=== PATIENT | female | born 1950 | race Caucasian/White ===

== ENCOUNTER → 2023-10-28 09:40 | Outpatient (REF) | payer MEDICARE, OTHER, SELFPAY | LOC: HWRAD 09:40 | PROVIDERS: ATTENDING PHYSICIAN Internal Medicine Critical Care Medicine; FAMILY PHYSICIAN Family Medicine | DX: Z87.891 Personal history of nicotine dependence (principal) | CPT/HCPCS: 71271 ==

== ENCOUNTER 2023-11-17 14:12 | Emergency (ER) | payer MEDICARE, OTHER, SELFPAY ==
[2023-11-17 14:24] VITALS: BP 179/86
[2023-11-17 18:01] LABS: % Basophils 0.9 % (0-2); % Eosinophils 1.7 % (0-6); % Immature Granulocytes 0.3 % (0-0.5); % Lymphocytes 7.9 % (20.5-51.1); % Monocytes 4.7 % (1.7-9.3); % Neutrophils 84.5 % (42.2-75.2); Absolute Basophils 0.1 10^3/uL (0-0.2); Absolute Eosinophils 0.2 10^3/uL (0-0.7); Absolute Lymphocytes 0.7 10^3/uL (1.2-3.4); Absolute Monocytes 0.4 10^3/uL (0.1-0.6); Absolute Neutrophils 7.4 10^3/uL (1.4-6.5); Hematocrit 41.2 % (37.0-47.0); Hemoglobin 14.4 g/dL (12.0-16.0); Mean Corpuscular Hgb 32.5 pg (27.0-31.0); Mean Platelet Volume 8.9 fL (7.4-10.4); Nucleated Red Blood Cells % 0 %; Platelet Count 265 10^3/uL (130-400); Red Blood Cell Count 4.43 10^6/uL (4.20-5.40); Red Cell Dist. Width 13.7 % (11.5-14.5); White Blood Cell Count 8.8 10^3/uL (4.8-10.8)
[2023-11-17] MEDS: TYLENOL 650 MG PO (18:12)
[2023-11-17 18:15] LABS: ALT (SGPT) 20 U/L (0-35); AST (SGOT) 29 U/L (14-36); Alkaline Phosphatase 83 U/L (38-126); Blood Urea Nitrogen 16 mg/dl (7-17); Calcium 9.5 mg/dl (8.4-10.2); Carbon Dioxide 26 mmol/L (22-30); Chloride 102 mmol/L (98-107); Glucose 91 mg/dl (70-99); Potassium 4.3 mmol/L (3.5-5.1); Sodium 136 mmol/L (135-145); Total Bilirubin 0.5 mg/dl (0.2-1.3); Total Protein 7.2 g/dl (6.3-8.2); eGFR > 60.00
[2023-11-17 18:26] VITALS: BMI 23.0
--- NOTE | 2023-11-17 18:29 | ED.GENMED ---
History of Present Illness
<Nancy Trammell PA-C - Last Filed: 11/20/23 15:20>
General
Chief Complaint: Chest Pain
Source: patient
Exam Limitations: none
Time Seen by Provider: 11/17/23 17:18
Nursing documentation reviewed up to this point in time: agreed with
Travel History
Have you had any contact with someone who has COVID-19?: No
Do you have any symptoms of coronavirus? Fever > 100 degrees, chills, cough, shortness of breath, sore throat, loss of taste or smell, muscle aches, or headache?: Yes
Symptoms:: fever
History of Present Illness
History of Present Illness:
pt is a 73 y/o F with h/o HTN, hld, microscopic colitis
osteoporosis
had first infusion of reclast yesterdayat 4 pm
she was told to expect fever, flu like symptoms
pt says around 7 pm she started having some pain under her bra, which felt tight like a mildly uncomfortable band
pt says it was minimal and she was able tosleep
she woke up and still had that feeling, like a tightness/discomfrt under her bra area on both sides
it is not better or worse with breathing
she called the office to ask if chest pain was a side effect and seh was told no and to come in
pt has a fefver now and feels feverish, headache, chills, slight cough
she has chronic diarrhea, has had diagnosis of microscopic colitis and is followed by GI
she has loose stool after each po intake for years;
sometimes she takes immodium
no bloody stool and no significant diarrhea today
denies drinking alcohol
no recent travel, no surgeries, no horomones, no pe rf.
Past History
<Nancy Trammell PA-C - Last Filed: 11/20/23 15:20>
Past History
ED Past Medical History: HTN, Hypercholesterolemia, Hypothyroidism and Other (Microscopic colitis, Diverticulosis)
ED Past Surgical History: None
Social History
Tobacco: Smoker
Alcohol: None
Personal:
Living: alone
Review of Systems
<GLENDA Naidu Last Filed: 11/20/23 15:20>
Review of Systems
Allergies reviewed?: Yes
All Other Systems: Not applicable
Phy Exam
<GLENDA Naidu Last Filed: 11/20/23 15:20>
Physical Exam
Physical Exam:
GENERAL: Alert , flushed, slight chills
EYE: pupils equal and reactive
NECK: Supple
ENT: b/l TM s clear, pharynx erythematous but no tonsillar hypertrophy or exudates
CARDIAC: Regular rate and rhythm, no edema
LUNGS: Clear breath sounds bilaterally, no acute respiratory distress, no wheezes/rales/rhonchi, occ cough
ribs nontender
deep breaths normally
ABDOMEN: Soft, without focal tenderness, no r/g, no cvat, normal bowel sounds
neg silva's sign
NEUROLOGICAL: Alert and oriented, no focal neuro deficits
SKIN: Warm and dry, skin intact.
MUSCULOSKELETAL: No edema, well perfused.
PSYCH: Normal and appropriate interaction.
Scores
<Nancy Trammell PA-C - Last Filed: 11/20/23 15:20>
Heart Score for Chest Pain Patients
STEMI patient?: No
History: Slightly or Non-Suspicious
ECG: Normal
Age: >/= 65 years
Risk Factors: 1 or 2 Risk Factors
Troponin: </= Normal Limit
Heart Score for Chest Pain Patients: 3
Heart Score Risk: 2.5% MACE over next 6 weeks
Course
<Nancy Trammell PA-C - Last Filed: 11/20/23 15:20>
Orders/Labs/Results
Orders:
Orders
11/17/23 14:27
Electrocardiogram (*1) Urgent
Reason for Study: Chest Pain
EKG- Treatment ONCE
11/17/23 17:45
COVID-19 Antigen Urgent
Source: Nasal Swab
Complete Blood Count/With Diff Urgent
Comprehensive Metabolic Panel Urgent
Lipase Urgent
Comment: ADD ON
Troponin I Urgent
Influenza A+B Rapid Molecular Urgent
SUHAS Source: Nasal Swab
Specimen Description:
11/17/23 17:52
Acetaminophen [Tylenol] 650 mg .ROUTE .STK-MED ONE
11/17/23 18:12
Acetaminophen [Tylenol] 650 mg PO NOW STA
11/17/23 18:19
Add On- LAB Urgent
Tests Added?: lipase
11/17/23 18:27
CR Chest - 2 Views Urgent
Comment:
Reason For Exam: chest pain
11/17/23 18:41
0.9% Sodium Chloride 1000 ml [Nss] 1,000 ml IV BOLUS
Abnormal Lab Results
11/17/23
17:45
MCH 32.5 H pg
(27.0-31.0)
Absolute Neuts (auto) 7.4 H 10^3/uL
(1.4-6.5)
Absolute Lymphs (auto) 0.7 L 10^3/uL
(1.2-3.4)
Neutrophils % 84.5 H %
(42.2-75.2)
Lymphocytes % 7.9 L %
(20.5-51.1)
11/17/23 17:45
11/17/23 17:45
Vital Signs
Initial and Last Documented VS:
Initial Vital Signs
Temp Pulse Resp BP Pulse Ox
100.7 F H 74 16 179/86 95
11/17/23 14:24 11/17/23 14:24 11/17/23 14:24 11/17/23 14:24 11/17/23 14:24
Last Documented Vital Signs
Temp Pulse Resp BP Pulse Ox
98.8 F 74 16 179/86 95
11/17/23 19:35 11/17/23 14:24 11/17/23 14:24 11/17/23 14:24 11/17/23 14:24
<Camden Wasserman, DO - Last Filed: 11/17/23 19:36>
Orders/Labs/Results
Orders:
Orders
11/17/23 14:27
Electrocardiogram (*1) Urgent
Reason for Study: Chest Pain
EKG- Treatment ONCE
11/17/23 17:45
COVID-19 Antigen Urgent
Source: Nasal Swab
Complete Blood Count/With Diff Urgent
Comprehensive Metabolic Panel Urgent
Lipase Urgent
Comment: ADD ON
Troponin I Urgent
Influenza A+B Rapid Molecular Urgent
SUHAS Source: Nasal Swab
Specimen Description:
11/17/23 17:52
Acetaminophen [Tylenol] 650 mg .ROUTE .STK-MED ONE
11/17/23 18:12
Acetaminophen [Tylenol] 650 mg PO NOW STA
11/17/23 18:19
Add On- LAB Urgent
Tests Added?: lipase
11/17/23 18:27
CR Chest - 2 Views Urgent
Comment:
Reason For Exam: chest pain
11/17/23 18:41
0.9% Sodium Chloride 1000 ml [Nss] 1,000 ml IV BOLUS
Abnormal Lab Results
11/17/23
17:45
MCH 32.5 H pg
(27.0-31.0)
Absolute Neuts (auto) 7.4 H 10^3/uL
(1.4-6.5)
Absolute Lymphs (auto) 0.7 L 10^3/uL
(1.2-3.4)
Neutrophils % 84.5 H %
(42.2-75.2)
Lymphocytes % 7.9 L %
(20.5-51.1)
11/17/23 17:45
11/17/23 17:45
Vital Signs
Initial and Last Documented VS:
Initial Vital Signs
Temp Pulse Resp BP Pulse Ox
100.7 F H 74 16 179/86 95
11/17/23 14:24 11/17/23 14:24 11/17/23 14:24 11/17/23 14:24 11/17/23 14:24
Last Documented Vital Signs
Temp Pulse Resp BP Pulse Ox
98.8 F 74 16 179/86 95
11/17/23 19:35 11/17/23 14:24 11/17/23 14:24 11/17/23 14:24 11/17/23 14:24
<Nancy Trammell PA-C - Last Filed: 11/20/23 15:20>
MDM/Problems Addressed
Differential Diagnosis Includes:
infusion reaction/side effects, acs, pneumonia, flu, covid
MDM/Problems Addressed:
73 y/o F with h/o htn, hld
got infusion of reclast for Osteoporosis yesterday and was told to expect flu like illness
t says she felt band aroudn her upper abd/chest yesterday that ws mild and again felt it today and thne developed fever, chills, fatigued, etc
pt wanted to make sure it wasn't her heart
she doesn't have pleuritic pain or sob
no vomiting
febrile here
nontoxic
no distress
nontender exam
seen by dr wasserman
eval with labs, ekg, trop, cxr, flu and covid and w/u reassuring
likely just side effect of infusion
d/c home
<Nancy Trammell PA-C - Last Filed: 11/20/23 15:20>
*Critical Care Note
Total Time (30-74mins, 75-104mins- exclusive of procedures): Not Applicable
ED Attending Note
<Nancy Trammell PA-C - Last Filed: 11/20/23 15:20>
-
Portions of this chart may have been created with voice recognition software.� Occasional wrong word or��sound alike� substitutions may have occurred due to the inherent limitations of voice recognition software.
<Camden Wasserman, - Last Filed: 11/17/23 19:36>
ED Attending Note
Patient seen and examined by attending physician: Yes
I performed the substantive portion of visit, reviewed & personally made and approve the management plan that is documented in note by myself or ASHWIN.: Yes
ED Attending Note:
I have seen and evaluated the patient with a [id number] encounter. I have spoken to the advance practicer provider and involved in the medical history, the physical exam, medical decision making.
Evaluation and management service: agree unless noted differently below.
Results interpretation: agree unless noted differently below.
Focused HPI: 73-year-old female presenting with fever and bodyaches. Patient just received her first infusion for osteoporosis. She was told that she could expect myalgias and fever. Patient does complain of slight cough.
Physical exam: Well-appearing nontoxic. Abdomen soft and nontender. Lungs clear
Medical Decision Making: Will obtain basic blood work including chest x-ray. If no obvious source of fever, will plan this on medication side effect
Update 7:35 PM: Patient feeling better after fluids and Tylenol. I rechecked her temperature and it is currently 98.8. She is feeling better. No blood work abnormality. Troponin negative. Chest x-ray clear. COVID and flu negative. Patient
feels comfortable going home
Discharge Plan
Departure
Patient Disposition: Home (Routine Discharge)
Date of Disposition: 11/17/23
Time of Disposition: 19:35
Patient with high blood pressure during this ER visit?: Yes
Discharge Problem:
Adverse drug event
Instructions: Adverse Drug Reactions, Adult ED, BLOOD PRESSURE
Prescriptions:
No Action
hydrocodone-acetaminophen 1 TABLET tablet
1 tab PO Q4HPRN PRN (Reason: Pain) Qty: 8 0RF
Referrals:
Zeus Rosales DO [Family Provider] -
Activity Restrictions/Additional Instructions:
Please return for any worsening symptoms.
You may return at any time if you have further concerns.
Please follow up with your doctor at the first available appointment, preferably this week.
Thank you for choosing [facility].
Interventions
Interventions:
*Risk Screen - Suicide Last Done: 11/17/23 18:27
*General Assessment Last Done: 11/17/23 18:27
*Neglect/Abuse Screening Last Done: 11/17/23 18:27
ED- Fall Risk Assessment Last Done: 11/17/23 20:12
*ED COVID-19 Vaccine History Last Done: 11/17/23 14:24
*Nursing Disposition Last Done: 11/17/23 20:12
Discharge Date and Time
Discharge Date/Time: 11/17/23 20:13
[2023-11-17 18:50] LABS: COVID-19 Antigen Negative (Negative)
[2023-11-17 19:01] LABS: Troponin I < 0.012 ng/ml
[2023-11-17 19:13] LABS: Lipase 168 U/L (23-300)
== END 2023-11-17 20:13 | disposition home or self-care (01) ==
LOC: EMR 14:12
PROVIDERS: Emergency Medicine; Physician Assistant; EMERGENCY PHYSICIAN Student in an Organized Health Care Education/Training Program; FAMILY PHYSICIAN Family Medicine
DX: R07.89 Other chest pain (principal); T50.905A Adverse effect of unspecified drugs, medicaments and biological substances, initial encounter; Y92.9 Unspecified place or not applicable; I10 Essential (primary) hypertension; E78.00 Pure hypercholesterolemia, unspecified; M81.0 Age-related osteoporosis without current pathological fracture; E03.9 Hypothyroidism, unspecified; F17.200 Nicotine dependence, unspecified, uncomplicated
CPT/HCPCS: 99283; 71046; 80053; 83690; 84484; 85025; 87502; 87811; 93005

== ENCOUNTER 2024-10-18 09:54 | Outpatient (RCR) | payer MEDICARE, OTHER, SELFPAY | END 2024-10-18 23:59 | disposition home or self-care (01) | LOC: RPT 09:54 | PROVIDERS: ATTENDING PHYSICIAN Internal Medicine; FAMILY PHYSICIAN Family Medicine | DX: M15.0 Primary generalized (osteo)arthritis (principal); M25.511 Pain in right shoulder; M25.512 Pain in left shoulder; M54.50 Low back pain, unspecified; Z73.6 Limitation of activities due to disability; M62.81 Muscle weakness (generalized); M81.0 Age-related osteoporosis without current pathological fracture; N39.3 Stress incontinence (female) (male) | CPT/HCPCS: 97010; 97110; 97112; 97162; 97530 ==

== ENCOUNTER 2024-11-15 09:45 | Outpatient (RCR) | payer MEDICARE, OTHER, SELFPAY | END 2024-11-15 13:39 | disposition home or self-care (01) | LOC: RPT 09:45 | PROVIDERS: ATTENDING PHYSICIAN Internal Medicine; FAMILY PHYSICIAN Family Medicine | DX: M15.0 Primary generalized (osteo)arthritis (principal); M25.511 Pain in right shoulder; M25.512 Pain in left shoulder; M54.50 Low back pain, unspecified; Z73.6 Limitation of activities due to disability; M62.81 Muscle weakness (generalized); M81.0 Age-related osteoporosis without current pathological fracture; N39.3 Stress incontinence (female) (male) | CPT/HCPCS: 97112 ==

== ENCOUNTER → 2024-11-15 11:27 | Outpatient (REF) | payer MEDICARE, OTHER, SELFPAY | LOC: HWRAD 11:27 | PROVIDERS: ATTENDING PHYSICIAN Internal Medicine Critical Care Medicine; FAMILY PHYSICIAN Family Medicine | DX: Z87.891 Personal history of nicotine dependence (principal) | CPT/HCPCS: 71271 ==

== ENCOUNTER → 2024-12-22 09:48 | Outpatient (REF) | payer MEDICARE, OTHER, SELFPAY | LOC: WDC 09:48 | PROVIDERS: ATTENDING PHYSICIAN Family Medicine | DX: Z12.31 Encounter for screening mammogram for malignant neoplasm of breast (principal) | CPT/HCPCS: 76642; 77063; 77067 ==

== ENCOUNTER 2025-04-27 13:47 | Emergency (ER) | payer MEDICARE, OTHER, SELFPAY ==
[2025-04-27 14:29] LABS: Hematocrit 41.2 % (37.0-47.0); Hemoglobin 14.4 g/dL (12.0-16.0); Mean Corp Hgb Conc. 35.0 g/dL (33.0-37.0); Mean Corpuscular Volume 95.4 fL (81.0-99.0); Nucleated Red Blood Cells % 0 %; Platelet Count 263 10^3/uL (130-400); Red Cell Dist. Width 13.8 % (11.5-14.5)
[2025-04-27 14:36] LABS: Urine Character Clear (Clear)
[2025-04-27 14:48] LABS: ALT (SGPT) 18 U/L (0-35); AST (SGOT) 22 U/L (14-36); Albumin 4.6 g/dl (3.5-5.0); Alkaline Phosphatase 76 U/L (38-126); Blood Urea Nitrogen 16 mg/dl (7-17); Calcium 9.3 mg/dl (8.4-10.2); Carbon Dioxide 22 mmol/L (22-30); Chloride 107 mmol/L (98-107); Glucose 106 mg/dl (70-99); Potassium 4.3 mmol/L (3.5-5.1); Sodium 136 mmol/L (135-145); Total Protein 7.5 g/dl (6.3-8.2); eGFR > 60.00
[2025-04-27 14:53] LABS: Urine White Cell 0-2 /HPF (0-5)
--- NOTE | 2025-04-27 18:48 | ED.MUSCINJ ---
HPI-Injury
General
Chief Complaint: Musculo-Skeletal Complaint
Source: patient
Exam Limitations: none
Time Seen by Provider: 04/27/25 16:33
History of Present Illness-Injury
Initial Injury comments:
74-year-old female presents with generalized weakness and falls over the past week. One of the fall she struck her elbow on the ground. Since then her elbow has become more red and swollen and painful. She was also found to have a UTI. She just
started Macrobid for her UTI yesterday she has had 3 doses. She was seen at our urgent care today and was sent here for increasing redness and swelling to the right elbow. No fevers. No chest pain or shortness of breath
Past History
Past History
ED Past Medical History: HTN, Hypercholesterolemia, Hypothyroidism and Other (Microscopic colitis, Diverticulosis)
ED Past Surgical History: None
Social History
Tobacco: Smoker
Alcohol: None
Personal:
Living: alone
Phy Exam
Physical Exam
Physical Exam:
General: Well-appearing female no acute respiratory distress
HEENT: Normocephalic atraumatic
Heart: Regular rate and rhythm
Lungs: Clear no wheeze
Skin: Erythema and swelling noted to the olecranon area of the right elbow. This is tender without underlying induration or lymphangitic streaking
Musculoskeletal exam: Full range of motion right elbow
Abdomen is soft nontender
Injury Course
Orders/Labs/Results
Orders:
Orders
04/27/25 14:18
Complete Blood Count/With Diff Urgent
Comprehensive Metabolic Panel Urgent
Urinalysis Reflex To Culture Urgent
Date Specimen was Collected: 04/27/25
Time Specimen was Collected: 14:04
Urine Microscopic Reflex Cult Urgent
Urine Culture Urgent
SUHAS Source: U
Specimen Description:
Date Specimen was Collected: 04/27/25
Time Specimen was Collected: 14:04
04/27/25 16:49
CT Head W/o Iv Contrast Urgent
Comment:
Reason For Exam: falls
04/27/25 17:43
Crisis Consult Urgent
Reason for Consult: depression
04/27/25 18:27
Body Fluid Cell Count Urgent
What is the Body Fluid: joint
Date Specimen was Collected: 04/27/25
Time Specimen was Collected: 17:57
Comment: with DIFF
Body Fluid Crystals Urgent
What is the Body Fluid: joint
Date Specimen was Collected: 04/27/25
Time Specimen was Collected: 17:57
Fluid Culture with Gram Stain Urgent
SUHAS Source: Joint Fluid
Specimen Description:
Date Specimen was Collected: 04/27/25
Time Specimen was Collected: 17:57
Abnormal Lab Results
04/27/25
14:18
WBC 12.4 H 10^3/uL
(4.8-10.8)
MCH 33.3 H pg
(27.0-31.0)
Abs Immat Gran (auto) 0.1 H 10^3/uL
(0-0.05)
Absolute Neuts (auto) 10.0 H 10^3/uL
(1.4-6.5)
Absolute Lymphs (auto) 1.0 L 10^3/uL
(1.2-3.4)
Absolute Monos (auto) 0.9 H 10^3/uL
(0.1-0.6)
Neutrophils % 80.8 H %
(42.2-75.2)
Lymphocytes % 7.8 L %
(20.5-51.1)
Glucose 106 H mg/dl
(70-99)
Ur Occult Blood Reflex 1+ A
(Negative)
Urine Nitrite (Reflex) Positive A
(Negative)
Urine Bilirubin 3+ A
(Negative)
Urine Urobilinogen 2+ A
(Neg - 1+)
Urine RBC 3-6 A /HPF
(0-2)
Urine Bacteria (Reflex) Few A
(Negative)
Urine Albumin (Reflex) 2+ A
(Neg - Trace)
04/27/25 14:18
04/27/25 14:18
MDM/Problems Addressed
Differential Diagnosis Includes:
Falls with recent diagnosis of UTI and now erythema to the right elbow suggestive of olecranon bursitis. The right elbow was drained. Approximately 5 cc of mostly clear charli-colored fluid was withdrawn from the olecranon bursa. This will be sent
for fluid culture cell count and Gram stain. Labs reviewed white count is 12. Overall nontoxic otherwise. CT head pending
*Pulse Oximetry
Patient hypoxic: no
*Critical Care Note
Total Time (30-74mins, 75-104mins- exclusive of procedures): Not Applicable
Update Note
Update Note:
CT head negative. Cell count shows white blood cell count of 2000 and the synovial fluid. Do not suspect septic bursitis. Question possible cellulitis. Overall patient is nontoxic discussed with her treatment options. She wishes to go home.
Will add doxycycline to her Macrobid. She is limited somewhat by certain allergies.
ED Attending Note
-
Portions of this chart may have been created with voice recognition software.� Occasional wrong word or��sound alike� substitutions may have occurred due to the inherent limitations of voice recognition software.
Discharge Plan
Departure
Patient Disposition: Home (Routine Discharge)
Date of Disposition: 04/27/25
Time of Disposition: 19:42
Patient with high blood pressure during this ER visit?: No
Discharge Problem:
Cellulitis
Prescriptions:
New
doxycycline hyclate 100 mg tablet
100 mg PO BID Qty: 14 0RF
No Action
hydrocodone-acetaminophen 1 TABLET tablet
1 tab PO Q4HPRN PRN (Reason: Pain) Qty: 8 0RF
Referrals:
Zeus Rosales DO [Family Provider, Family Practice]
Activity Restrictions/Additional Instructions:
Use warm compresses to the elbow. Take antibiotic as directed. Return here if worse otherwise follow-up with your doctor
Interventions
Interventions:
*Risk Screen - Suicide Last Done: 04/27/25 14:02
*Neglect/Abuse Screening Last Done: 04/27/25 14:02
ED-Musculoskeletal Assessment Last Done: 04/27/25 18:35
Discharge Date and Time
Print Language: CZECH
[2025-04-27 18:59] VITALS: BP 132/51
[2025-04-27 19:23] LABS: Body Fluid Second Tech CMB
[2025-04-27] MEDS: VIBRAMYCIN 100 MG PO (20:19)
[2025-04-27 21:36] VITALS: BP 141/42
== END 2025-04-27 20:38 | disposition home or self-care (01) ==
LOC: EMR 13:47
PROVIDERS: Physician Assistant; Student in an Organized Health Care Education/Training Program; EMERGENCY PHYSICIAN Emergency Medicine; FAMILY PHYSICIAN Family Medicine
DX: L03.113 Cellulitis of right upper limb (principal); F32.A Depression, unspecified; R29.6 Repeated falls; F17.200 Nicotine dependence, unspecified, uncomplicated
CPT/HCPCS: 99285; 20605; 70450; 80053; 81003; 81015; 85025; 87015; 87070; 87086; 87147; 87205; 89051; 89060